=== PATIENT | male | born 1970 | race Caucasian/White ===

== ENCOUNTER 2023-08-30 20:06 | Emergency (ER) | payer OTHER ==
[~2023-08-30] VITALS: Ht 185.4 cm; Wt 79.4 kg
[2023-08-30] MEDS ORDERED: Ketorolac Tromethamine 15 MG/ML VIAL IM ONE (20:30)
[2023-08-30] MEDS ORDERED: methylPREDNISolone sod succ 125 MG VIAL IM ONE (20:30)
[2023-08-30 20:45] LABS: BILIRUBIN Negative (Negative); BLOOD Negative (Negative); CLARITY Clear (Clear); COLOR Yellow (Yellow); GLUCOSE Negative (Negative); KETONE Negative (Negative); LEUKO ESTERASE Negative (Negative); NITRITE Negative (Negative); PH 5.5 (4.5-8.0); SPECIFIC GRAVITY <= 1.005 (1.001-1.030)
[2023-08-30 20:51] LABS: BACTERIA TRACE
[2023-08-30] MEDS ORDERED: Motrin,Rufen800 MG PO (21:13)
[2023-08-30] MEDS ORDERED: CYCLOBENZAPRINE5 M3 PO (21:13)
== END 2023-08-30 21:17 | disposition home or self-care (01) ==
LOC: ED 20:06
PROVIDERS: Physician Assistant Medical
DX: M54.12 Radiculopathy, cervical region (principal); Z98.890 Other specified postprocedural states

== ENCOUNTER 2024-06-30 18:29 | Emergency (ER) | payer OTHER ==
[~2024-06-30] VITALS: Ht 187.9 cm; Wt 87.3 kg
[~2024-06-30 18:29] MED LIST: CYCLOBENZAPRINE5 M3 PO; Motrin,Rufen800 MG PO
[2024-06-30] MEDS ORDERED: ROCURONIUM BROMIDE 50 MG/5 ML SYRINGE IV ONE ×2 (19:10→21:24)
[2024-06-30] MEDS ORDERED: PROPOFOL 50 ML IV SCH (19:10)
[2024-06-30] MEDS ORDERED: ETOMIDATE 20 MG/10 ML VIAL IV ONE ×2 (19:10→21:24)
[2024-06-30 19:23] LABS: BASO # 0.1 10*3/uL (0.0-0.1); BASO % 1.1 % (0.0-1.0); EOS # 0.1 10*3/uL (0.0-0.4); EOS % 1.1 % (1.0-4.0); HEMATOCRIT 40.8 % (42.0-52.0); MEAN CELL VOLUME 97.8 fl (80.0-94.0); MEAN CORPUSCULAR HGB 32.6 pg (27.0-31.0); MEAN CORPUSCULAR HGB CONC 33.3 g/dl (33.0-37.0); MEAN PLATELET VOLUME 9.8 fl (9.6-12.3); MONO # 1.1 10*3/uL (0.1-1.0); MONO % 15.6 % (3.0-9.0); NEUT # 3.4 10*3/uL (2.3-7.9); PLATELET COUNT AUTOMATED 162 10*3/uL (130-400); RED BLOOD COUNT 4.17 10*6/uL (4.50-5.90); WHITE BLOOD COUNT 7.1 10*3/uL (4.8-10.8)
[2024-06-30] MEDS ORDERED: PROPOFOL 100 ML IV ONE (19:23)
[2024-06-30 19:27] LABS: BILIRUBIN Negative (Negative); BLOOD Negative (Negative); CLARITY Clear (Clear); COLOR Yellow (Yellow); GLUCOSE Negative (Negative); KETONE Negative (Negative); LEUKO ESTERASE Negative (Negative); NITRITE Negative (Negative); PH 6.5 (4.5-8.0); SPECIFIC GRAVITY <= 1.005 (1.001-1.030); UROBILINOGEN 0.2 E.U./dl (0.0-1.0)
[2024-06-30] MEDS ORDERED: LEVETIRACETAM IN NACL (ISO-OS) 100 ML IV ONE (19:30)
[2024-06-30 19:34] LABS: ACT PARTIAL THROMBO TIME 28.2 SECONDS (20.0-32.1); URINE AMPHETAMINES Negative (1000ng/ml); URINE BARBITURATES Negative (200ng/ml); URINE BENZODIAZEPINES Negative (200ng/ml); URINE CANNABINOIDS (THC) Negative (50ng/ml); URINE COCAINE Negative (300ng/ml); URINE METHADONE Negative (300ng/ml); URINE OPIATES Negative (300ng/ml); URINE PHENCYCLIDINE Negative (25ng/ml)
[2024-06-30 19:37] LABS: EPITHELIAL CELLS 0-2; WBC 0-2 wbc/hpf (0-5)
[2024-06-30 20:05] LABS: ALKALINE PHOSPHATASE 91 U/L (46-116); CHLORIDE 101 mmol/L (98-107); POTASSIUM 3.8 mmol/L (3.4-5.1); SGPT/ALT 35 U/L (5-49); TOTAL PROTEIN 8.6 gm/dL (6.0-8.0)
[2024-06-30 20:08] LABS: BUN < 5 mg/dl (9-23)
== END 2024-06-30 20:34 | disposition short-term general hospital (02) ==
LOC: ED 18:29
PROVIDERS: Internal Medicine
DX: S06.30AA Unspecified focal traumatic brain injury with loss of consciousness status unknown, initial encounter (principal); S00.03XA Contusion of scalp, initial encounter; Z79.899 Other long term (current) drug therapy; Z98.890 Other specified postprocedural states; Y08.89XA Assault by other specified means, initial encounter; Y93.89 Activity, other specified; Y92.524 Gas station as the place of occurrence of the external cause; Y99.8 Other external cause status